=== PATIENT | male | born 1980 ===

== ENCOUNTER 2023-06-06 02:18 | Inpatient (IN) | payer OTHER ==
[~2023-06-06] VITALS: Ht 170.2 cm; Wt 77.1 kg
[2023-06-06 02:53] LABS: BASOPHILS 0.9 % (0-2); EOSINOPHILS 0.1 % (0-6); HEMOGLOBIN 14.6 g/dL (12.0-18.0); LYMPHOCYTES 20.4 % (24-44); MCH 30.8 (27-36); MCHC 33.9 g/dl (30-36); MCV 90.7 fl (81-99); MONOCYTES 2.8 % (0-12); NEUTROPHILS 75.8 % (39-80); PLATELET COUNT 283 K/uL (140-440); RBC 4.74 M/ul (4.3-5.7)
[2023-06-06 03:09] LABS: ALBUMIN 4.5 g/dL (3.4-5.0); ALBUMIN/GLOBULIN RATIO 1.29 (1.1-2.4); ANION GAP 26.9 (7-21); BUN/CREATININE RATIO 25.24 (6.0-28.6); CALCIUM 9.1 mg/dL (8.5-10.1); CREATININE, SERUM 1.03 mg/dL (0.70-1.30); MAGNESIUM 1.8 mg/dL (1.8-2.4); POTASSIUM 3.9 mmol/L (3.5-5.1)
[2023-06-06 03:54] LABS: BASE EXCESS, BLOOD GAS -8.4 mmol/L (-2-2); HCO3, BLOOD GAS 17.1 mmol/L (22-26); OXYGEN RECEIVED, BLOOD GAS NOT STATED; PCO2, BLOOD GAS 34.7 mmHg (35-45); PO2, BLOOD GAS 90 mmHg (80-100); TOTAL CO2, BLOOD GAS 18.2
[2023-06-06 05:12] LABS: ACETAMINOPHEN 0 ug/mL (10-30)
[2023-06-06 05:18] LABS: BILIRUBIN, URINE NEGATIVE (negative); BLOOD/HGB, URINE NEGATIVE (Negative); KETONE, URINE >=80 (Negative); LEUK ESTERASE, URINE NEGATIVE (negative); NITRITE, URINE NEGATIVE (negative)
[2023-06-06 05:34] LABS: AMPHETAMINES, UR NEGATIVE (NEGATIVE); BARBITURATES, UR NEGATIVE (NEGATIVE); BENZODIAZEPINES, UR NEGATIVE (NEGATIVE); BUPRENORPHINE,UR NEGATIVE (NEGATIVE); COCAINE, UR NEGATIVE (NEGATIVE); MARIJUANA (THC), UR NEGATIVE (NEGATIVE); MDMA, UR NEGATIVE (NEGATIVE); METHADONE, UR NEGATIVE (NEGATIVE); METHAMPHETAMINE, UR NEGATIVE (NEGATIVE); OPIATES, UR NEGATIVE (NEGATIVE); OXYCODONE, UR NEGATIVE (NEGATIVE); PHENCYCLIDINE, UR NEGATIVE (NEGATIVE); TRICYCLIC ANTIDEPRESSANT, UR NEGATIVE (NEGATIVE)
[2023-06-06 07:03] VITALS: BP 130/79
[2023-06-06 07:05] LABS: ALBUMIN 3.5 g/dL (3.4-5.0); ALBUMIN/GLOBULIN RATIO 1.21 (1.1-2.4); ANION GAP 18.3 (7-21); BILIRUBIN, TOTAL 0.9 ng/dL (0.2-1.0); BUN/CREATININE RATIO 20.23 (6.0-28.6); CREATININE, SERUM 0.84 mg/dL (0.70-1.30); POTASSIUM 4.3 mmol/L (3.5-5.1); PROTEIN, TOTAL 6.4 g/dL (6.4-8.2)
[2023-06-06 13:34] VITALS: BP 117/69
[2023-06-06 18:15] VITALS: BP 118/84
[2023-06-06 18:29] VITALS: BP 122/91
[2023-06-06 20:02] VITALS: BP 113/75
--- NOTE | 2023-06-06 22:06 | EKG ---
[facility] [address] [place] [address] Signed Sinus tachycardia Possible Left atrial enlargement Borderline ECG No previous ECGs available Confirmed by Harpreet Sethi MD () on 06/06/2023 10:06:02 PM Electronically Signed By: HARPREET SETHI MD 06/06/232205 PATIENT NAME: EMILY NUNEZ Electrocardiogram DATE OF : 82 PHYSICIAN: HARPREET SETHI MD REPORT #: [id number] REPORT IS CONFIDENTIAL AND NOT TO BE RELEASED WITHOUT AUTHORIZATION
[2023-06-06 23:36] VITALS: BP 111/75
[2023-06-07 01:23] VITALS: BP 120/86
[2023-06-07 05:04] VITALS: BP 128/87
[2023-06-07 05:59] LABS: EOSINOPHILS 0.8 % (0-6); HEMATOCRIT 38.4 % (35.0-50.0); HEMOGLOBIN 12.9 g/dL (12.0-18.0); LYMPHOCYTES 13.4 % (24-44); MCH 30.1 (27-36); MCHC 33.7 g/dl (30-36); MCV 89.3 fl (81-99); MONOCYTES 5.8 % (0-12); PLATELET COUNT 200 K/uL (140-440); RDW 14.5 (10.5-15.0)
[2023-06-07 06:15] LABS: ALBUMIN 3.6 g/dL (3.4-5.0); ALBUMIN/GLOBULIN RATIO 1.13 (1.1-2.4); ANION GAP 12.1 (7-21); BILIRUBIN, TOTAL 1.5 ng/dL (0.2-1.0); BUN/CREATININE RATIO 10.71 (6.0-28.6); CALCIUM 9.1 mg/dL (8.5-10.1); CREATININE, SERUM 0.84 mg/dL (0.70-1.30); MAGNESIUM 1.6 mg/dL (1.8-2.4); PHOSPHORUS, INORGANIC 2.3 mg/dL (2.5-4.9); POTASSIUM 4.1 mmol/L (3.5-5.1); PROTEIN, TOTAL 6.8 g/dL (6.4-8.2)
[2023-06-07 08:34] VITALS: BP 116/77
[2023-06-07 10:20] VITALS: BP 136/75
[2023-06-07 17:23] LABS: OSMOLALITY 325 mOsm/kg (280-303)
== END 2023-06-07 10:20 | disposition home or self-care (01) | DRG 641 ==
LOC: ED 02:18 → MS 05:33
PROVIDERS: Internal Medicine; ADMIT Family Medicine; ATTEND Family Medicine
PROC: 4A033R1 Measurement of Arterial Saturation, Peripheral, Percutaneous Approach (ICD-10-PCS; principal; 2023-06-06)
DX: E87.20 Acidosis, unspecified (principal); M25.562 Pain in left knee; F10.90 Alcohol use, unspecified, uncomplicated; E83.39 Other disorders of phosphorus metabolism; E83.42 Hypomagnesemia; R07.9 Chest pain, unspecified; Z98.890 Other specified postprocedural states; Z20.822 Contact with and (suspected) exposure to COVID-19
CPT/HCPCS: 36415; 36600; 71045; 71260; 80053; 81003; 82803; 83690; 83735; 83930; 84100; 84484; 85025; 85379; 93005; 93010; 93971; 96361; 99285-25; A9270; C9803; G0480; J1451; J2405; J3411; J7030; J7121; Q9967; U0002